=== PATIENT | male | born 1980 | race African-American/Black ===

== ENCOUNTER 2022-11-21 06:23 | Inpatient (IN) | payer OTHER ==
[2022-11-21] MEDS ORDERED: OCTREOTIDE ACETATE 50 MCG/1 ML - 1 ML VIAL IVPUSH ONE (06:46)
[2022-11-21 06:47] LABS: VENOUS BASE EXCESS -0.8 mmol/L (-2-2); VENOUS O2 SATURATION 90.1 % (70-80); VENOUS PCO2 37.5 mmHg (38-52); VENOUS PH 7.413 (7.310-7.410)
[2022-11-21 06:49] LABS: BASO % 0.4 % (0-2.0); EOS % 2.7 % (0-4.5); HEMATOCRIT 41.7 % (35.4-49); HEMOGLOBIN 14.2 GM/dL (11.7-16.9); LYMPH % 28.7 % (8-40); MCH 33.9 pg (25.7-33.7); MEAN CELL VOLUME 99.8 fl (80-96); MEAN PLT VOLUME 10.7 fl (7.5-11.1); MONO % 13.7 % (3.8-10.2); NEUT % 54.5 % (42.8-82.8); PLATELET COUNT 138 10^3/uL (134-434); RBC 4.17 M/mm3 (4.00-5.60); RDW 14.3 % (11.9-15.9); WHITE BLOOD COUNT 8.7 K/mm3 (4.0-10.0)
[2022-11-21] MEDS ORDERED: PANTOPRAZOLE SODIUM 40 MG VIAL ONE ×3 (06:50→09:06)
[2022-11-21] MEDS ORDERED: PANTOPRAZOLE SODIUM 40 MG VIAL IVPUSH ONE (06:50)
[2022-11-21] MEDS ORDERED: OCTREOTIDE ACETATE 100 MCG/1 ML ONE (06:51)
[2022-11-21 07:06] LABS: POTASSIUM 3.6 mmol/L (3.5-5.1)
[2022-11-21 07:09] LABS: ALBUMIN 3.7 g/dl (3.4-5.0); BLOOD UREA NITROGEN 13.6 mg/dL (7-18); CALCIUM 8.7 mg/dL (8.5-10.1)
[2022-11-21 07:12] LABS: CREATININE 0.9 mg/dL (0.55-1.3)
[2022-11-21 07:13] LABS: BILIRUBIN,TOTAL 0.7 mg/dL (0.2-1); TOT PROT 8.5 g/dl (6.4-8.2)
[2022-11-21 07:15] LABS: INR 1.29 (0.83-1.09); PROTHROMBIN TIME (PATIENT) 14.9 SEC (9.7-13.0)
[2022-11-21 07:18] LABS: ACTIVATED PTT 37.7 SECONDS (25.2-36.5)
[2022-11-21] MEDS ORDERED: PANTOPRAZOLE SODIUM 80 MG in SODIUM CHLORIDE 100 ML IVPB SCH ×2 (08:00→08:55)
[2022-11-21 08:59] LABS: MAGNESIUM 1.9 mg/dL (1.8-2.4)
[2022-11-21] MEDS ORDERED: PANTOPRAZOLE SODIUM 40 MG/100 ML BAG IVPB ONE (09:05)
[2022-11-21 09:07] LABS: HEMATOCRIT 40.1 % (35.4-49); HEMOGLOBIN 13.6 GM/dL (11.7-16.9); MCH 33.9 pg (25.7-33.7); MCHC 33.8 g/dl (32.0-35.9); MEAN CELL VOLUME 100.4 fl (80-96); MEAN PLT VOLUME 10.7 fl (7.5-11.1); PLATELET COUNT 125 10^3/uL (134-434); RDW 14.3 % (11.9-15.9); WHITE BLOOD COUNT 7.8 K/mm3 (4.0-10.0)
[2022-11-21] MEDS ORDERED: SODIUM CHLORIDE 1,000 ML IV STA (09:10)
[2022-11-21] MEDS ORDERED: MIDAZOLAM HCL 2 MG/2 ML SINGLE DOSE VIAL ONE ×2 (10:29→13:55)
[2022-11-21] MEDS ORDERED: FENTANYL CITRATE/PF 50 MCG/ML VIAL ONE ×2 (10:29→13:54)
[2022-11-21] MEDS ORDERED: PROMETHAZINE HCL 25 MG/1 ML VIAL IVPB PRN (12:55)
[2022-11-21] MEDS ORDERED: ONDANSETRON 4 MG/2 ML VIAL IVPUSH PRN (12:55)
[2022-11-21] MEDS ORDERED: LACTATED RINGERS SOLUTION 1,000 ML IV SCH (13:00)
[2022-11-21] MEDS ORDERED: PROPOFOL 1,000,000 MCG/100 ML VIAL IVPB SCH (14:30)
[2022-11-21] MEDS ORDERED: MIDAZOLAM HCL 5 MG/1 ML Single Dose Vial ONE (14:46)
[2022-11-21] MEDS ORDERED: MIDAZOLAM HCL 2 MG/2 ML SINGLE DOSE VIAL IVPUSH ONE (14:55)
[2022-11-21 15:11] LABS: ARTERIAL BLD GAS O2 SATURATION 96.6 % (95-98); ARTERIAL BLOOD GAS PO2 94.5 mmHg (80-100); ARTERIAL BLOOD GAS pH 7.321 (7.350-7.450)
[2022-11-21] MEDS ORDERED: AZITHROMYCIN IVPB 500 MG in DEXTROSE 5%-WATER - 250 ML IVPB SCH (15:15)
[2022-11-21 15:16] LABS: ALLENS TEST POSITIVE
[2022-11-21 15:17] LABS: VENT MODE VENT; VENT RATE 20
[2022-11-21] MEDS: TRANEXAMIC ACID 1000 MG/10 ML VIAL IVPUSH ONE ×2 (15:30→19:39)
[2022-11-21 15:32] LABS: BASO % 1.2 % (0-2.0); EOS % 0.7 % (0-4.5); HEMATOCRIT 39.2 % (35.4-49); HEMOGLOBIN 13.3 GM/dL (11.7-16.9); LYMPH % 13.8 % (8-40); MCH 33.4 pg (25.7-33.7); MCHC 33.9 g/dl (32.0-35.9); MEAN CELL VOLUME 98.8 fl (80-96); MONO % 9.3 % (3.8-10.2); PLATELET COUNT 128 10^3/uL (134-434); RBC 3.97 M/mm3 (4.00-5.60); RDW 14.5 % (11.9-15.9); WHITE BLOOD COUNT 15.7 K/mm3 (4.0-10.0)
[2022-11-21 15:40] LABS: INR 1.38 (0.83-1.09); PROTHROMBIN TIME (PATIENT) 15.9 SEC (9.7-13.0)
[2022-11-21] MEDS: PROPOFOL 1,000,000 MCG/100 ML VIAL IVPB SCH ×2 (16:00→21:00)
[2022-11-21] MEDS: FENTANYL NS IVPB 500 MCG/100 ML BAG IVPB SCH ×2 (16:00→21:18)
[2022-11-21] MEDS: MIDAZOLAM IN 0.9 % SOD.CHLORID 100 MG/100 ML PLAST..BAG IVPB SCH (16:14)
[2022-11-21] MEDS: CEFTRIAXONE 1 GM in DEXTROSE 5%-WATER - 50 ML IVPB SCH (16:15)
[2022-11-21] MEDS: AZITHROMYCIN IVPB 500 MG/250 ML BAG IVPB SCH (16:21)
[2022-11-21 16:25] LABS: POTASSIUM 4.3 mmol/L (3.5-5.1)
[2022-11-21 16:26] LABS: ALBUMIN 3.5 g/dl (3.4-5.0); BLOOD UREA NITROGEN 10.8 mg/dL (7-18)
[2022-11-21 16:31] LABS: BILIRUBIN,TOTAL 1.1 mg/dL (0.2-1); TOT PROT 8.2 g/dl (6.4-8.2)
[2022-11-21] MEDS ORDERED: INSULIN (NOVOLOG) ASPART 100 UNITS/ML 10ML VIAL ONE (16:31)
[2022-11-21] MEDS ORDERED: FOLIC ACID INJECTION - 1 MG, THIAMINE HCL 100 MG, MULTIVIT INJECTION ADULT 10 ML in SOD... IVPB ONE (19:00)
[2022-11-21 21:02] LABS: BASO % 0.7 % (0-2.0); HEMATOCRIT 38.3 % (35.4-49); LYMPH % 7.2 % (8-40); MCH 33.5 pg (25.7-33.7); MCHC 33.9 g/dl (32.0-35.9); MEAN CELL VOLUME 98.7 fl (80-96); NEUT % 88.1 % (42.8-82.8); PLATELET COUNT 124 10^3/uL (134-434); RBC 3.88 M/mm3 (4.00-5.60); RDW 14.3 % (11.9-15.9); WHITE BLOOD COUNT 14.3 K/mm3 (4.0-10.0)
[2022-11-21] MEDS: MUPIROCIN 2% TOPICAL OINTMENT FOR DECOLONIZATION NS SCH (22:26)
[2022-11-21] MEDS: CHLORHEXIDINE GLUCONATE 4% CLEANSER FOR DECOLONIZATION TP SCH (22:26)
[2022-11-21] MEDS: PANTOPRAZOLE SODIUM 40 MG VIAL IVPUSH SCH (23:54)
[2022-11-22 07:41] LABS: BASO % 0.8 % (0-2.0); HEMATOCRIT 37.5 % (35.4-49); HEMOGLOBIN 12.5 GM/dL (11.7-16.9); MCH 33.5 pg (25.7-33.7); MCHC 33.3 g/dl (32.0-35.9); MEAN CELL VOLUME 100.8 fl (80-96); MEAN PLT VOLUME 11.4 fl (7.5-11.1); MONO % 8.4 % (3.8-10.2); NEUT % 79.8 % (42.8-82.8); PLATELET COUNT 119 10^3/uL (134-434); RBC 3.72 M/mm3 (4.00-5.60); RDW 14.3 % (11.9-15.9); WHITE BLOOD COUNT 11.9 K/mm3 (4.0-10.0)
[2022-11-22 07:55] LABS: INR 1.37 (0.83-1.09); PROTHROMBIN TIME (PATIENT) 15.8 SEC (9.7-13.0)
[2022-11-22 07:58] LABS: ACTIVATED PTT 35.3 SECONDS (25.2-36.5)
[2022-11-22 08:14] LABS: ALBUMIN 3.3 g/dl (3.4-5.0); BLOOD UREA NITROGEN 8.4 mg/dL (7-18); CALCIUM 8.2 mg/dL (8.5-10.1); MAGNESIUM 1.8 mg/dL (1.8-2.4)
[2022-11-22 08:16] LABS: CREATININE 0.8 mg/dL (0.55-1.3)
[2022-11-22 08:18] LABS: TOT PROT 7.7 g/dl (6.4-8.2)
[2022-11-22 08:19] LABS: BILIRUBIN,TOTAL 1.1 mg/dL (0.2-1)
[2022-11-22] MEDS: FENTANYL NS IVPB 500 MCG/100 ML BAG IVPB SCH ×2 (08:28→15:46)
[2022-11-22 09:05] LABS: PHOSPHOROUS 3.3 mg/dL (2.5-4.9)
[2022-11-22] MEDS ORDERED: SUCCINYLCHOLINE CHLORIDE 200 MG/10 ML VIAL IVPUSH ONE (09:30)
[2022-11-22] MEDS: CEFTRIAXONE 1 GM in DEXTROSE 5%-WATER - 50 ML IVPB SCH (09:51)
[2022-11-22] MEDS: PANTOPRAZOLE SODIUM 40 MG VIAL IVPUSH SCH ×2 (09:59→20:59)
[2022-11-22] MEDS: MUPIROCIN 2% TOPICAL OINTMENT FOR DECOLONIZATION NS SCH ×2 (09:59→20:59)
[2022-11-22] MEDS: AZITHROMYCIN IVPB 500 MG/250 ML BAG IVPB SCH (10:00)
[2022-11-22] MEDS: ALBUTEROL SO4 2.5/IPRATROPIUM 0.5 INH SOL 3 ML VIAL.NEB. NEB SCH ×4 (10:04→20:33)
[2022-11-22] MEDS ORDERED: methylPREDNISolone NA SUCC 125 MG/2 ML VIAL IVPB ONE (10:16)
[2022-11-22] MEDS ORDERED: methylPREDNISolone NA SUCC 40 MG/1 ML VIAL IVPUSH ONE (10:18)
[2022-11-22] MEDS: MIDAZOLAM IN 0.9 % SOD.CHLORID 100 MG/100 ML PLAST..BAG IVPB SCH ×2 (11:04→15:46)
[2022-11-22] MEDS: PROPOFOL 1,000,000 MCG/100 ML VIAL IVPB SCH (15:46)
[2022-11-22 19:35] LABS: HIV INTERPRETATION NEGATIVE (NEGATIVE)
[2022-11-22] MEDS: CHLORHEXIDINE GLUCONATE 4% CLEANSER FOR DECOLONIZATION TP SCH (20:59)
[2022-11-23] MEDS: ALBUTEROL SO4 2.5/IPRATROPIUM 0.5 INH SOL 3 ML VIAL.NEB. NEB SCH ×6 (00:30→20:22)
[2022-11-23 01:06] LABS: EPI CELLS 3 /uL (0-25.1); HYALINE CASTS 0 /uL (0-3.1); URINE APPEARANCE CLEAR; URINE BACTERIA 3 /uL (0-1359); URINE BILIRUBIN NEGATIVE (NEGATIVE); URINE COLOR YELLOW; URINE GLUCOSE (UA) NEGATIVE (NEGATIVE); URINE KETONE NEGATIVE (NEGATIVE); URINE LEUK ESTERASE NEGATIVE (NEGATIVE); URINE NITRITE NEGATIVE (NEGATIVE); URINE PROTEIN NEGATIVE (NEGATIVE); URINE RBC 1314 /uL (0-23.9); URINE WBC 10 /uL (0-25.8)
[2022-11-23 01:22] LABS: COCAINE, UR NEGATIVE (NEGATIVE)
[2022-11-23 01:23] LABS: OPIATES, URI NEGATIVE (NEGATIVE); PHENCYCLIDINE,URINE NEGATIVE (NEGATIVE); URINE BARBITURATES NEGATIVE (NEGATIVE)
[2022-11-23 01:24] LABS: URINE AMPHETAMINES NEGATIVE (NEGATIVE)
[2022-11-23 01:28] LABS: METHADONE, UR NEGATIVE (NEGATIVE); URINE BENZODIAZEPINES POSITIVE (NEGATIVE)
[2022-11-23 08:01] LABS: POTASSIUM 3.3 mmol/L (3.5-5.1)
[2022-11-23 08:06] LABS: ALBUMIN 3.3 g/dl (3.4-5.0)
[2022-11-23 08:07] LABS: BLOOD UREA NITROGEN 12.3 mg/dL (7-18); CALCIUM 8.3 mg/dL (8.5-10.1); MAGNESIUM 2.1 mg/dL (1.8-2.4)
[2022-11-23 08:09] LABS: PHOSPHOROUS 3.6 mg/dL (2.5-4.9)
[2022-11-23 08:10] LABS: CREATININE 0.9 mg/dL (0.55-1.3)
[2022-11-23 08:11] LABS: BILIRUBIN,TOTAL 1.6 mg/dL (0.2-1); TOT PROT 7.8 g/dl (6.4-8.2)
[2022-11-23 08:12] LABS: BASO % 0.3 % (0-2.0); EOS % 0.1 % (0-4.5); HEMATOCRIT 39.5 % (35.4-49); HEMOGLOBIN 12.9 GM/dL (11.7-16.9); LYMPH % 12.3 % (8-40); MCHC 32.7 g/dl (32.0-35.9); MEAN CELL VOLUME 101.1 fl (80-96); MEAN PLT VOLUME 12.1 fl (7.5-11.1); MONO % 10.2 % (3.8-10.2); NEUT % 77.1 % (42.8-82.8); PLATELET COUNT 127 10^3/uL (134-434); RBC 3.91 M/mm3 (4.00-5.60); RDW 14.4 % (11.9-15.9); WHITE BLOOD COUNT 18.2 K/mm3 (4.0-10.0)
[2022-11-23] MEDS ORDERED: POTASSIUM CHLORIDE ORAL LIQUID 20 MEQ/15 ML PO ONE (08:54)
[2022-11-23] MEDS: CEFTRIAXONE 1 GM in DEXTROSE 5%-WATER - 50 ML IVPB SCH (09:53)
[2022-11-23] MEDS: AZITHROMYCIN IVPB 500 MG/250 ML BAG IVPB SCH (09:53)
[2022-11-23] MEDS: MUPIROCIN 2% TOPICAL OINTMENT FOR DECOLONIZATION NS SCH ×2 (09:54→21:18)
[2022-11-23] MEDS: PANTOPRAZOLE SODIUM 40 MG VIAL IVPUSH SCH ×2 (09:54→21:18)
[2022-11-23] MEDS ORDERED: methylPREDNISolone NA SUCC 40 MG/1 ML VIAL IVPB ONE (09:55)
[2022-11-23] MEDS ORDERED: POTASSIUM CHLORIDE TABS 10 MEQ TABLET.ER (FP) PO SCH (10:00)
[2022-11-23] MEDS: CHLORHEXIDINE GLUCONATE 4% CLEANSER FOR DECOLONIZATION TP SCH (21:18)
[2022-11-24] MEDS: ALBUTEROL SO4 2.5/IPRATROPIUM 0.5 INH SOL 3 ML VIAL.NEB. NEB SCH ×6 (00:59→22:10)
[2022-11-24 07:32] LABS: BASO % 0.8 % (0-2.0); EOS % 0.7 % (0-4.5); HEMATOCRIT 40.8 % (35.4-49); HEMOGLOBIN 13.5 GM/dL (11.7-16.9); LYMPH % 22.1 % (8-40); MCH 33.5 pg (25.7-33.7); MEAN CELL VOLUME 101.6 fl (80-96); MEAN PLT VOLUME 12.1 fl (7.5-11.1); MONO % 11.5 % (3.8-10.2); NEUT % 64.9 % (42.8-82.8); PLATELET COUNT 138 10^3/uL (134-434); RBC 4.01 M/mm3 (4.00-5.60); RDW 14.5 % (11.9-15.9)
[2022-11-24 07:37] LABS: POTASSIUM 3.5 mmol/L (3.5-5.1)
[2022-11-24 07:42] LABS: CALCIUM 8.4 mg/dL (8.5-10.1)
[2022-11-24 07:43] LABS: ALBUMIN 3.4 g/dl (3.4-5.0); BLOOD UREA NITROGEN 16.8 mg/dL (7-18)
[2022-11-24 07:47] LABS: BILIRUBIN,TOTAL 1.3 mg/dL (0.2-1); TOT PROT 8.2 g/dl (6.4-8.2)
[2022-11-24] MEDS: FOLIC ACID 1 MG TABLET (FP) PO SCH (09:20)
[2022-11-24] MEDS: MUPIROCIN 2% TOPICAL OINTMENT FOR DECOLONIZATION NS SCH (09:20)
[2022-11-24] MEDS: PANTOPRAZOLE SODIUM 40 MG VIAL IVPUSH SCH ×2 (09:20→21:45)
[2022-11-24] MEDS: CEFTRIAXONE 1 GM in DEXTROSE 5%-WATER - 50 ML IVPB SCH (09:20)
[2022-11-24] MEDS: AZITHROMYCIN IVPB 500 MG/250 ML BAG IVPB SCH (09:21)
[2022-11-24] MEDS: THIAMINE HCL 100 MG TABLET (FP) PO SCH (09:23)
[2022-11-24 09:49] LABS: ERYTHROCYTE SEDIMENTATION RATE 82 mm/hr (0-10)
[2022-11-24] MEDS ORDERED: ALBUTEROL SO4 2.5/IPRATROPIUM 0.5 INH SOL 3 ML VIAL.NEB. NEB ONE (20:14)
[2022-11-24] MEDS ORDERED: MUPIROCIN 2% TOPICAL OINTMENT FOR DECOLONIZATION NS SCH (22:00)
[2022-11-24] MEDS ORDERED: CHLORHEXIDINE GLUCONATE 4% CLEANSER FOR DECOLONIZATION TP SCH (22:00)
[2022-11-25] MEDS: ALBUTEROL SO4 2.5/IPRATROPIUM 0.5 INH SOL 3 ML VIAL.NEB. NEB SCH ×5 (04:00→20:00)
[2022-11-25] MEDS: FOLIC ACID 1 MG TABLET (FP) PO SCH (09:15)
[2022-11-25] MEDS: AZITHROMYCIN IVPB 500 MG/250 ML BAG IVPB SCH (09:15)
[2022-11-25] MEDS: THIAMINE HCL 100 MG TABLET (FP) PO SCH (09:15)
[2022-11-25] MEDS: CEFTRIAXONE 1 GM in DEXTROSE 5%-WATER - 50 ML IVPB SCH (09:16)
[2022-11-25] MEDS: PANTOPRAZOLE SODIUM 40 MG VIAL IVPUSH SCH ×2 (09:16→21:48)
[2022-11-25] MEDS ORDERED: SODIUM CHLORIDE NASAL SPRAY 44 ML BOTTLE NS PRN (12:50)
[2022-11-25 15:39] LABS: HEMATOCRIT 40.3 % (35.4-49); HEMOGLOBIN 13.5 GM/dL (11.7-16.9); MCH 33.7 pg (25.7-33.7); MCHC 33.4 g/dl (32.0-35.9); MEAN CELL VOLUME 100.8 fl (80-96); MEAN PLT VOLUME 11.6 fl (7.5-11.1); PLATELET COUNT 166 10^3/uL (134-434); RDW 14.2 % (11.9-15.9); WHITE BLOOD COUNT 12.3 K/mm3 (4.0-10.0)
[2022-11-25 16:08] LABS: POTASSIUM 3.5 mmol/L (3.5-5.1)
[2022-11-25 16:08] LABS: ATYPICAL pANCA <1:20 titer (Neg:<1:20); C-ANCA <1:20 titer (Neg:<1:20)
[2022-11-25 16:12] LABS: ALBUMIN 3.5 g/dl (3.4-5.0); CALCIUM 8.2 mg/dL (8.5-10.1)
[2022-11-25 16:15] LABS: PHOSPHOROUS 3.3 mg/dL (2.5-4.9)
[2022-11-25 16:17] LABS: BILIRUBIN,TOTAL 1.1 mg/dL (0.2-1); TOT PROT 8.1 g/dl (6.4-8.2)
[2022-11-25 16:30] LABS: BLOOD UREA NITROGEN 15.5 mg/dL (7-18)
[2022-11-26] MEDS: ALBUTEROL SO4 2.5/IPRATROPIUM 0.5 INH SOL 3 ML VIAL.NEB. NEB SCH ×6 (00:16→20:05)
[2022-11-26] MEDS: CEFTRIAXONE 1 GM in DEXTROSE 5%-WATER - 50 ML IVPB SCH (10:50)
[2022-11-26] MEDS: FOLIC ACID 1 MG TABLET (FP) PO SCH (10:50)
[2022-11-26] MEDS: THIAMINE HCL 100 MG TABLET (FP) PO SCH (10:50)
[2022-11-26] MEDS: PANTOPRAZOLE SODIUM 40 MG VIAL IVPUSH SCH ×2 (10:50→21:45)
[2022-11-26] MEDS: AZITHROMYCIN IVPB 500 MG/250 ML BAG IVPB SCH (10:50)
[2022-11-26 11:07] LABS: HEMATOCRIT 42.9 % (35.4-49); HEMOGLOBIN 14.5 GM/dL (11.7-16.9); MCHC 33.7 g/dl (32.0-35.9); MEAN CELL VOLUME 100.9 fl (80-96); MEAN PLT VOLUME 11.6 fl (7.5-11.1); PLATELET COUNT 174 10^3/uL (134-434); RBC 4.25 M/mm3 (4.00-5.60); RDW 14.2 % (11.9-15.9)
[2022-11-26 11:08] LABS: POTASSIUM 3.8 mmol/L (3.5-5.1)
[2022-11-26 11:10] LABS: CALCIUM 8.6 mg/dL (8.5-10.1)
[2022-11-26 11:11] LABS: ALBUMIN 3.6 g/dl (3.4-5.0); BLOOD UREA NITROGEN 13.4 mg/dL (7-18); MAGNESIUM 2.2 mg/dL (1.8-2.4)
[2022-11-26 11:14] LABS: PHOSPHOROUS 3.5 mg/dL (2.5-4.9)
[2022-11-26 11:15] LABS: BILIRUBIN,TOTAL 1.4 mg/dL (0.2-1); TOT PROT 8.5 g/dl (6.4-8.2)
[2022-11-27] MEDS: ALBUTEROL SO4 2.5/IPRATROPIUM 0.5 INH SOL 3 ML VIAL.NEB. NEB SCH ×7 (02:05→23:01)
[2022-11-27 09:05] LABS: HEMATOCRIT 40.5 % (35.4-49); HEMOGLOBIN 13.6 GM/dL (11.7-16.9); MCH 33.9 pg (25.7-33.7); MCHC 33.7 g/dl (32.0-35.9); MEAN CELL VOLUME 100.6 fl (80-96); MEAN PLT VOLUME 11.1 fl (7.5-11.1); PLATELET COUNT 172 10^3/uL (134-434); RBC 4.03 M/mm3 (4.00-5.60); WHITE BLOOD COUNT 11.3 K/mm3 (4.0-10.0)
[2022-11-27 09:15] LABS: POTASSIUM 3.7 mmol/L (3.5-5.1)
[2022-11-27 09:16] LABS: CALCIUM 8.6 mg/dL (8.5-10.1)
[2022-11-27 09:17] LABS: BLOOD UREA NITROGEN 11.7 mg/dL (7-18)
[2022-11-27 09:20] LABS: PHOSPHOROUS 2.9 mg/dL (2.5-4.9)
[2022-11-27] MEDS: THIAMINE HCL 100 MG TABLET (FP) PO SCH (09:39)
[2022-11-27] MEDS: PANTOPRAZOLE SODIUM 40 MG VIAL IVPUSH SCH ×2 (09:39→23:25)
[2022-11-27] MEDS: FOLIC ACID 1 MG TABLET (FP) PO SCH (09:39)
[2022-11-27] MEDS: AZITHROMYCIN IVPB 500 MG/250 ML BAG IVPB SCH (09:40)
[2022-11-27] MEDS: CEFTRIAXONE 1 GM in DEXTROSE 5%-WATER - 50 ML IVPB SCH (11:20)
[2022-11-28] MEDS: ALBUTEROL SO4 2.5/IPRATROPIUM 0.5 INH SOL 3 ML VIAL.NEB. NEB SCH ×3 (03:30→11:43)
[2022-11-28 08:30] LABS: HEMATOCRIT 40.7 % (35.4-49); HEMOGLOBIN 13.5 GM/dL (11.7-16.9); MCH 33.5 pg (25.7-33.7); MCHC 33.3 g/dl (32.0-35.9); MEAN CELL VOLUME 100.6 fl (80-96); MEAN PLT VOLUME 12.1 fl (7.5-11.1); PLATELET COUNT 143 10^3/uL (134-434); RBC 4.04 M/mm3 (4.00-5.60); RDW 13.9 % (11.9-15.9); WHITE BLOOD COUNT 11.1 K/mm3 (4.0-10.0)
[2022-11-28 08:46] LABS: POTASSIUM 4.1 mmol/L (3.5-5.1)
[2022-11-28 08:51] LABS: CALCIUM 8.5 mg/dL (8.5-10.1)
[2022-11-28 08:52] LABS: BLOOD UREA NITROGEN 12.4 mg/dL (7-18); MAGNESIUM 2.2 mg/dL (1.8-2.4)
[2022-11-28 08:55] LABS: CREATININE 0.9 mg/dL (0.55-1.3); PHOSPHOROUS 3.1 mg/dL (2.5-4.9)
[2022-11-28] MEDS ORDERED: cefTRIAXone SODIUM 1 GM VIAL ONE (10:12)
[2022-11-28] MEDS: CEFTRIAXONE 1 GM in DEXTROSE 5%-WATER - 50 ML IVPB SCH (10:19)
[2022-11-28] MEDS: THIAMINE HCL 100 MG TABLET (FP) PO SCH (10:19)
[2022-11-28] MEDS: PANTOPRAZOLE SODIUM 40 MG VIAL IVPUSH SCH (10:19)
[2022-11-28] MEDS: FOLIC ACID 1 MG TABLET (FP) PO SCH (10:20)
[2022-11-28 10:32] VITALS: PULSE 93; RESP 16
[2022-11-28] MEDS: AZITHROMYCIN IVPB 500 MG/250 ML BAG IVPB SCH (11:13)
[2022-11-28 12:52] VITALS: BP 115/75; TEMP 97
[2022-11-28 13:06] VITALS: BMI 27.6
== END 2022-11-28 14:22 | disposition home or self-care (01) | DRG 139 ==
LOC: JER 06:23 → JERBED 09:40 → JICU 14:37 → J6S 11-24 17:33
PROVIDERS: ADMIT Internal Medicine Pulmonary Disease; ATTEND Internal Medicine
PROC: 0B9C8ZX Drainage of Right Upper Lung Lobe, Via Natural or Artificial Opening Endoscopic, Diagnostic (ICD-10-PCS; principal; 2022-11-22)
PROC: 0BH17EZ Insertion of Endotracheal Airway into Trachea, Via Natural or Artificial Opening (ICD-10-PCS; 2022-11-22)
PROC: 5A1935Z Respiratory Ventilation, Less than 24 Consecutive Hours (ICD-10-PCS; 2022-11-22)
DX: J18.9 Pneumonia, unspecified organism (principal); J96.01 Acute respiratory failure with hypoxia; K92.2 Gastrointestinal hemorrhage, unspecified; F10.20 Alcohol dependence, uncomplicated; D69.6 Thrombocytopenia, unspecified; J98.01 Acute bronchospasm; K76.0 Fatty (change of) liver, not elsewhere classified; D72.829 Elevated white blood cell count, unspecified; F17.210 Nicotine dependence, cigarettes, uncomplicated; R04.2 Hemoptysis; R04.0 Epistaxis
CPT/HCPCS: 0241U-QW; 36415; 36600; 71045-TC-FY; 71046-TC-FY; 71260-TC; 74177-TC; 80048; 80053; 80307; 81003; 82150; 82550; 82553; 82803; 82962; 83516; 83520; 83690; 83735; 84100; 84484; 85025; 85027; 85379; 85384; 85610; 85651; 85730; 86038; 86140; 86256; 86480; 86850; 86900; 86901; 86922; 87040; 87070; 87086; 87102; 87116; 87205; 87206; 87210; 87305; 87389; 87449; 87899; 88108; 88305-TC; 93005; 93010; 94002; 94640; 97116-GP; 97161-GP; 99285-25; Q9967

== ENCOUNTER 2023-10-03 03:00 | Inpatient (IN) | payer OTHER ==
[2023-10-03 03:58] LABS: BASO % 0.4 % (0-2.0); EOS % 1.9 % (0-4.5); HEMATOCRIT 42.2 % (35.4-49); LYMPH % 32.4 % (8-40); MCH 35.7 pg (25.7-33.7); MCHC 35.6 g/dl (32.0-35.9); MEAN CELL VOLUME 100.4 fl (80-96); MEAN PLT VOLUME 11.3 fl (7.5-11.1); NEUT % 51.3 % (42.8-82.8); PLATELET COUNT 119 10^3/uL (134-434); RDW 16.1 % (11.9-15.9); WHITE BLOOD COUNT 7.8 K/mm3 (4.0-10.0)
[2023-10-03 04:00] LABS: INR 1.45 (0.83-1.09); PROTHROMBIN TIME (PATIENT) 16.5 SEC (9.7-13.0)
[2023-10-03 04:02] LABS: ACTIVATED PTT 45.8 SECONDS (25.2-36.5)
[2023-10-03 04:15] LABS: POTASSIUM 3.5 mmol/L (3.5-5.1)
[2023-10-03 04:17] LABS: ALBUMIN 3.4 g/dl (3.4-5.0); CALCIUM 8.3 mg/dL (8.5-10.1)
[2023-10-03 04:21] LABS: CREATININE 0.8 mg/dL (0.55-1.3)
[2023-10-03 04:22] LABS: BILIRUBIN,TOTAL 1.8 mg/dL (0.2-1); TOT PROT 8.8 g/dl (6.4-8.2)
[2023-10-03] MEDS ORDERED: ALBUTEROL SO4 2.5/IPRATROPIUM 0.5 INH SOL 3 ML VIAL.NEB. NEB ONE (08:58)
[2023-10-03] MEDS: ALBUTEROL SO4 2.5/IPRATROPIUM 0.5 INH SOL 3 ML VIAL.NEB. NEB ONE (09:03)
[2023-10-03] MEDS: ALBUTEROL SO4 0.083% IH SOL 2.5 MG/3 ML VIAL.NEB. NEB SCH (15:07)
[2023-10-03 15:25] LABS: EPI CELLS 0 /uL (0-25.1); HYALINE CASTS 0 /uL (0-3.1); PH,URINE 6.5 (5.0-8.0); URINE APPEARANCE CLEAR; URINE BACTERIA 2 /uL (0-1359); URINE BILIRUBIN NEGATIVE (NEGATIVE); URINE COLOR YELLOW; URINE GLUCOSE (UA) NEGATIVE (NEGATIVE); URINE KETONE TRACE (NEGATIVE); URINE LEUK ESTERASE NEGATIVE (NEGATIVE); URINE NITRITE NEGATIVE (NEGATIVE); URINE PROTEIN 1+ (NEGATIVE); URINE RBC 14 /uL (0-23.9); URINE WBC 1 /uL (0-25.8)
[2023-10-03] MEDS ORDERED: ALBUTEROL SO4 0.083% IH SOL 2.5 MG/3 ML VIAL.NEB. NEB ONE ×2 (16:25→21:06)
[2023-10-04] MEDS ORDERED: MELATONIN 5 MG TABLETS ONE (05:02)
[2023-10-04] MEDS: MELATONIN 5 MG TABLETS PO ONE (05:04)
[2023-10-04 06:50] LABS: POTASSIUM 3.6 mmol/L (3.5-5.1)
[2023-10-04 06:52] LABS: CALCIUM 8.6 mg/dL (8.5-10.1)
[2023-10-04 06:53] LABS: ALBUMIN 3.5 g/dl (3.4-5.0); BLOOD UREA NITROGEN 11.8 mg/dL (7-18)
[2023-10-04 06:56] LABS: CREATININE 0.8 mg/dL (0.55-1.3)
[2023-10-04 06:57] LABS: TOT PROT 8.9 g/dl (6.4-8.2)
[2023-10-04 07:16] LABS: BILIRUBIN,TOTAL 4.9 mg/dL (0.2-1)
[2023-10-04 07:26] LABS: BASO % 1.3 % (0-2.0); EOS % 2.3 % (0-4.5); HEMATOCRIT 44.8 % (35.4-49); HEMOGLOBIN 15.7 GM/dL (11.7-16.9); LYMPH % 17.6 % (8-40); MCH 35.2 pg (25.7-33.7); MEAN CELL VOLUME 100.5 fl (80-96); MEAN PLT VOLUME 11.9 fl (7.5-11.1); MONO % 12.3 % (3.8-10.2); NEUT % 66.5 % (42.8-82.8); PLATELET COUNT 96 10^3/uL (134-434); RBC 4.46 M/mm3 (4.00-5.60); RDW 15.2 % (11.9-15.9); WHITE BLOOD COUNT 9.9 K/mm3 (4.0-10.0)
[2023-10-04 08:52] LABS: BILIRUBIN,DIRECT 2.1 mg/dL (0.0-0.2)
[2023-10-04] MEDS ORDERED: ALBUTEROL SO4 0.083% IH SOL 2.5 MG/3 ML VIAL.NEB. NEB ONE ×3 (09:43→16:28)
[2023-10-04 11:37] LABS: INR 1.4 (0.83-1.09); PROTHROMBIN TIME (PATIENT) 15.9 SEC (9.7-13.0)
[2023-10-04 11:40] LABS: ACTIVATED PTT 43.2 SECONDS (25.2-36.5)
[2023-10-04 11:57] LABS: MAGNESIUM 1.6 mg/dL (1.8-2.4)
[2023-10-04 12:00] LABS: PHOSPHOROUS 2.9 mg/dL (2.5-4.9)
[2023-10-04] MEDS ORDERED: MAGNESIUM SULFATE IN WATER 2 GM/50 ML IVPB IVPB ONE (13:58)
[2023-10-04] MEDS: MAGNESIUM 2GM/50ML STERILE WATER IVPB IVPB ONE (14:06)
[2023-10-04 17:04] LABS: COCAINE, UR NEGATIVE (NEGATIVE); PHENCYCLIDINE,URINE NEGATIVE (NEGATIVE); URINE AMPHETAMINES NEGATIVE (NEGATIVE)
[2023-10-04 17:06] LABS: METHADONE, UR NEGATIVE (NEGATIVE); OPIATES, URI NEGATIVE (NEGATIVE); URINE BARBITURATES NEGATIVE (NEGATIVE)
[2023-10-04 18:37] VITALS: BMI 26.1
[2023-10-04 22:31] LABS: URINE BENZODIAZEPINES NEGATIVE (NEGATIVE)
[2023-10-05 07:38] LABS: INR 1.39 (0.83-1.09); PROTHROMBIN TIME (PATIENT) 15.8 SEC (9.7-13.0)
[2023-10-05 07:43] LABS: POTASSIUM 3.4 mmol/L (3.5-5.1)
[2023-10-05 07:47] LABS: BLOOD UREA NITROGEN 13.4 mg/dL (7-18)
[2023-10-05 07:49] LABS: CALCIUM 8.9 mg/dL (8.5-10.1)
[2023-10-05 07:52] LABS: ALBUMIN 3.5 g/dl (3.4-5.0); BILIRUBIN,DIRECT 2.1 mg/dL (0.0-0.2)
[2023-10-05 07:53] LABS: CREATININE 0.9 mg/dL (0.55-1.3)
[2023-10-05 07:57] LABS: BILIRUBIN,TOTAL 4.7 mg/dL (0.2-1); TOT PROT 8.8 g/dl (6.4-8.2)
[2023-10-05 08:09] LABS: BASO % 0.5 % (0-2.0); EOS % 3.5 % (0-4.5); HEMATOCRIT 45.3 % (35.4-49); HEMOGLOBIN 15.8 GM/dL (11.7-16.9); MCH 35.4 pg (25.7-33.7); MCHC 34.9 g/dl (32.0-35.9); MEAN CELL VOLUME 101.4 fl (80-96); MEAN PLT VOLUME 13.3 fl (7.5-11.1); MONO % 13.4 % (3.8-10.2); NEUT % 62.6 % (42.8-82.8); PLATELET COUNT 95 10^3/uL (134-434); RBC 4.47 M/mm3 (4.00-5.60); RDW 15.2 % (11.9-15.9)
[2023-10-05] MEDS: THIAMINE HCL 200 MG/2 ML VIAL IVPB SCH (10:41)
[2023-10-05] MEDS: FOLIC ACID 1 MG TABLET (FP) PO SCH (10:42)
[2023-10-05] MEDS: POTASSIUM CHLORIDE ORAL LIQUID 20 MEQ/15 ML PO ONE (10:42)
[2023-10-05 13:11] VITALS: BP 126/87; PULSE 87; RESP 17; TEMP 98.1
== END 2023-10-05 12:27 | disposition left against medical advice (07) | DRG 140 ==
LOC: JER 03:00 → JERBED 07:18 → J4W 10-04 17:11
PROVIDERS: ADMIT Internal Medicine; ATTEND Internal Medicine
PROC: 3E1F88Z Irrigation of Respiratory Tract using Irrigating Substance, Via Natural or Artificial Opening Endoscopic (ICD-10-PCS; principal; 2023-10-03)
PROC: 0B9C8ZX Drainage of Right Upper Lung Lobe, Via Natural or Artificial Opening Endoscopic, Diagnostic (ICD-10-PCS; 2023-10-03)
DX: J44.9 Chronic obstructive pulmonary disease, unspecified (principal); R09.02 Hypoxemia; N28.1 Cyst of kidney, acquired; F17.210 Nicotine dependence, cigarettes, uncomplicated; K76.0 Fatty (change of) liver, not elsewhere classified; K70.10 Alcoholic hepatitis without ascites
CPT/HCPCS: 0241U-QW; 36415; 70490-TC; 71275-TC; 76705-TC; 80048; 80053; 80076; 80307; 81003; 82248; 82977; 83615; 83735; 84100; 84484; 85025; 85610; 85730; 86705; 86708; 86803; 86850; 86900; 86901; 87340; 87517; 93005; 93010; 94640; 99285-25; Q9967